=== PATIENT | male | born 1935 | race Native Hawaiian/Other Pacific Islander ===

== ENCOUNTER 2021-11-29 15:37 | Emergency (ER) | payer OTHER ==
[~2021-11-29] VITALS: Ht 188 cm; Wt 87.1 kg
[2021-11-29 15:37] VITALS: TEMP 98
[2021-11-29 16:11] LABS: PLATELET COUNT 190 K/uL (142-355)
[2021-11-29 16:20] LABS: POTASSIUM 3.5 mmol/L (3.6-5.2)
[2021-11-29 16:37] VITALS: BP 168/90
[2021-11-29] MEDS ORDERED: DIOVAN40 MG PO (17:46)
[2021-11-29] MEDS ORDERED: VITAMIN D5000 UNI1 PO (17:46)
[2021-11-29] MEDS ORDERED: FOLI1TAB26 PO (17:47)
[2021-11-29] MEDS ORDERED: VITAMIN B-121000 MC2 PO (17:48)
[2021-11-29] MEDS ORDERED: CARB25TA29 PO (17:49)
[2021-11-29] MEDS ORDERED: DOK100 MG PO (17:51)
[2021-11-29] MEDS ORDERED: REFRESH OPTH OPTH (17:51)
[2021-11-29] MEDS ORDERED: PRAVASTATIN10 MG PO (17:52)
[2021-11-29] MEDS ORDERED: MELATONIN CR3 MG PO (17:52)
[2021-11-29] MEDS ORDERED: EZET10TA13 PO (17:55)
[2021-11-29] MEDS ORDERED: TYLENOL325 MG PO ×2 (17:56→18:05)
[2021-11-29] MEDS ORDERED: BIOFREEZE TOP (17:57)
[2021-11-29] MEDS ORDERED: PAIN RELIE160 MG/5 M PO (18:06)
[2021-11-29] MEDS ORDERED: FEVERALL ADULT650 MG PR (18:09)
[2021-11-29] MEDS ORDERED: MAGNSUS68 PO (18:11)
[2021-11-29] MEDS ORDERED: MAGNESIUM PO (18:13)
[2021-11-29] MEDS ORDERED: ALUMINUM PO (18:13)
[2021-11-29] MEDS ORDERED: ROBITUSS10 PO (18:14)
[2021-11-29] MEDS ORDERED: ANTI-DIARRHE2 M1 PO (18:17)
[2021-12-04] MEDS ORDERED: ACET-206 PO (12:10)
[2021-12-04] MEDS ORDERED: DOCU100C10 PO (12:10)
[2021-12-04] MEDS ORDERED: VITAMIN B-121000 MCG PO (12:10)
[2021-12-04] MEDS ORDERED: ALUMSUS6 PO (12:10)
[2021-12-04] MEDS ORDERED: CARB25TA29 PO (12:10)
[2021-12-04] MEDS ORDERED: MELATONIN MAXIMU5 MG PO (12:11)
[2021-12-04] MEDS ORDERED: FOLI1TAB26 PO (12:11)
[2021-12-04] MEDS ORDERED: Artificial Tears 0.2 OPTH (12:11)
[2021-12-04] MEDS ORDERED: EZET10TA13 PO (12:11)
[2021-12-04] MEDS ORDERED: METO-837 PO (12:12)
[2021-12-04] MEDS ORDERED: BLOOMIS59 PO (12:12)
[2021-12-04] MEDS ORDERED: SERT50TA PO (12:13)
== END 2021-11-29 17:21 | disposition still patient (30) ==
LOC: ED 15:37
PROVIDERS: Emergency Medicine
DX: F32.9 Major depressive disorder, single episode, unspecified (principal); Z11.52 Encounter for screening for COVID-19; Z04.6 Encounter for general psychiatric examination, requested by authority
CPT/HCPCS: 36415; 80053; 81002; 85027; 87635; 93005; 99285; U0003